=== PATIENT | female | born 1975 | race Two or more races ===

== ENCOUNTER 2025-02-24 16:28 | Emergency (ER) | payer MEDICAID, OTHER ==
[~2025-02-24] VITALS: Ht 152.4 cm; Wt 80.5 kg
[2025-02-24 16:43] VITALS: TEMP 98.1
--- NOTE | 2025-02-24 17:07 | ED.PDOC ---
Back pain HPI HPI Comments HPI: 50 y/o F, with PMhx of obesity, arthritis, migraines, and HTN presents to the ED for CC of back pain. Patient states, that she has been experiencing lower lumbar back pain onset, [id number] following swimming in a pool. Patient reports, new onset symptoms of left leg and left arm numbness starting today (02/24/25). Quang walker relays, taking Oxycodan and trying over the counter lidocaine cream in addition to ice packs to try and alleviate symptoms with no success. Patient endorses, symptoms to worsen with movement and warmth. Patient denies trauma, injury, fall, or lifting. No other symptoms or modifying factors present at this time. Initial Vitals BP: 136/86 HR:87 RR:16 O2:97 Temp:98.1 Past Medical History: ARTHRITIS, OBESITY, HTN, MIGRAINES Past Surgical History: RUPTURED ECTOPIC , TRIGGER FINGERS, , LEFT-EYE, RIGHT-EYE Social History: Denies ETOH, smoking, and drug use. Medications: DENIES ANY Allergies: NKA Chief Complaint: Back Pain Time Seen by MD: 17:00 Reviewed Notes: Nurses Notes, Medications, Allergies Allergies: Coded Allergies: NO KNOWN ALLERGIES (Unverified , 02/24/25) Information Source: Patient Mode of Arrival: Ambulatory Timing: Weeks Duration: Since onset Location of Back pain: (B) Lumbar Severity: Moderate Prehospital treatment: None Onset: Other (sporting) Circumstance: Sporting History of: Arthritis Modifying Factors: Nothing Associated signs and symptoms: None Was a procedure done? Was a procedure done?: No Back Pain Differential Dx Differential Diagnosis: Musculoskeletal Pain, Other (pinched nerve) X-Ray, Labs, Meds, VS Vital Signs Date Time Temp Pulse Resp B/P (MAP) Pulse Ox O2 Delivery O2 Flow Rate FiO2 02/24/25 20:24 99 18 99 Room Air 02/24/25 20:24 89 18 124/89 (101) 99 02/24/25 16:43 98.1 87 16 136/86 (103) 97 98.1 Lab Test 02/24/25 17:29 02/24/25 17:00 Range/Units White Blood Count 6.5 4.4-10.8 10^3/uL Red Blood Count 4.87 4.0-5.20 10^6/uL Hemoglobin 14.6 12.2-16.2 g/dL Hematocrit 42.4 36.0-46.0 % Mean Corpuscular Volume 87.1 80.0-100.0 fL Mean Corpuscular Hemoglobin 30.1 28.0-32.0 pg Mean Corpuscular Hemoglobin Concent 34.5 32.0-36.0 g/dL Red Cell Distribution Width 13.3 11.8-14.3 % Platelet Count 330 140-450 10^3/uL Mean Platelet Volume 7.7 6.9-10.8 fL Neutrophils (%) (Auto) 65.4 37.0-80.0 % Lymphocytes (%) (Auto) 25.3 10.0-50.0 % Monocytes (%) (Auto) 7.3 0.0-12.0 % Eosinophils (%) (Auto) 1.7 0.0-7.0 % Basophils (%) (Auto) 0.3 0.0-2.0 % Neutrophils # (Auto) 4.2 1.6-8.6 10 ^3/uL Lymphocytes # (Auto) 1.6 0.4-5.4 10 ^3/uL Monocytes # (Auto) 0.5 0-1.3 10 ^3/uL Eosinophils # (Auto) 0.1 0-0.8 10 ^3/uL Basophils # (Auto) 0 0-0.2 10 ^3/uL Nucleated Red Blood Cells 0.1 % Sodium Level 146 H 136-145 mmol/L Potassium Level 3.5 3.5-5.1 mmol/L Chloride Level 109 H 98-107 mmol/L Carbon Dioxide Level 28 20-31 mmol/L Anion Gap 9 5-15 Blood Urea Nitrogen 9 9-23 mg/dL Creatinine 0.89 0.550-1.02 mg/dL Glomerular Filtration Rate Calc 78 >90 mL/min BUN/Creatinine Ratio 10.1 10.0-20.0 Serum Glucose 113 H 74-106 mg/dL Calcium Level 10.6 H 8.7-10.4 mg/dL Total Bilirubin 0.5 0.2-1.0 mg/dL Aspartate Amino Transferase (AST) 37 13-40 U/L Alanine Aminotransferase (ALT) 54 H 7-40 U/L Alkaline Phosphatase 82 46-116 U/L Total Protein 7.5 5.7-8.2 g/dL Albumin 5.0 H 3.2-4.8 g/dL Urine Color Yellow Yellow Urine Clarity Clear Clear Urine pH 5.5 5.0-9.0 Urine Specific [place] 1.023 1.001-1.035 Urine Protein Negative Negative Urine Ketones Negative Negative Urine Blood Negative Negative /uL Urine Nitrite Negative Negative Urine Bilirubin Negative Negative Urine Urobilinogen Normal Negative mg/dL Urine Leukocyte Esterase 2+ Negative /uL Urine RBC 2 0 - 4 /hpf Urine Microscopic WBC 2 0-5 /HPF Urine Squamous Epithelial Cells Few <5 /hpf Urine Bacteria None seen None Seen /hpf Urine Hyaline Casts Few 0 - 2 /lpf Urine Mucus Few None Seen Urine Glucose Normal Normal mg/dL Current Medications Medications (Trade) Dose Ordered Sig/Ephraim Route Start Time Stop Time Status Last Admin Dexamethasone Sodium Phosphate (Decadron Injection) 10 mg ONCE ONCE IM 02/24/25 18:00 02/24/25 18:01 DC 02/24/25 20:14 Ketorolac Tromethamine (Toradol Injection) 30 mg ONCE ONCE IM 02/24/25 18:00 02/24/25 18:01 DC 02/24/25 20:14 Acetaminophen/ Hydrocodone Bitart ([place] 5/325MG Tab) 1 tab ONCE ONCE PO 02/24/25 18:00 02/24/25 18:01 DC 02/24/25 20:14 [place] [address] Ph: [phone] DIAGNOSTIC IMAGING Diagnostic Imaging Report : [id number] Signed PATIENT: ANGELIKA PATEL CAROLACCT: [id number] UNIT: [id number] : 1975 LOC: ER ROOM / BED: / AGE / SEX: 50 / F ADM STATUS: REG ER SERVICE [id number] ORDERING PHYSICIAN: SHANTE GARCIA DO PROCEDURE(s): LS2CT - LS SPINE WO CONTRAST REASON: LOW BACK PAIN ORDER NUMBER(s): [id number], ACCESSION NUMBER(s): [id number] EXAM: CT LS SPINE WO CONTRAST INDICATION: LOW BACK PAIN TECHNIQUE: Axial images of the lumbar spine have been obtained along with coronal and sagittal reformatted images. CT scans at this facility use dose modulation, iterative reconstruction, and/or weight based dosing when appropriate to reduce radiation dose to as low as reasonably achievable. COMPARISON: None Dose: CTDI: 36.84. DLP: 1084.9 FINDINGS: 5 [id number] lumbar-type vertebrae. Normal alignment of the lumbar spine. The vertebral body heights are maintained. No evidence of acute traumatic fractures or spondylolisthesis. Minimal posterior disc bulge at L3-L4 and L5-S1. Otherwise, no significant spinal canal or neural foramina stenosis. The paraspinal muscles are unremarkable. IMPRESSION: No evidence of acute traumatic fractures or dislocations. If symptoms persist, consider MRI for further evaluation. ATED BY: REVA JEONG DO DICTATED DATE/TIME: 02/24/251745 SIGNED BY: REVA JEONG DO SIGNED DATE/TIME: 02/24/251745 CC: Time of 1ST Reevaluation: 17:30 Reevaluation 1ST: Unchanged Patient Education/Counseling: Diagnosis, Treatment Family Education/Counseling: No Family Present Departure 1 Departure Time of Disposition: 19:52 Impression: Primary Impression: Low back pain Disposition: 01 HOME / SELF CARE / HOMELESS Condition: Stable Additional Instructions: Additional instructions: You MUST follow-up with your primary care/family doctor in 1 to 2 days. If you are unable to see your primary care/family doctor, please return to our emergency room for re-assessment and re-evaluation in 1 to 2 days. Return to the emergency room here in our facility or to the nearest ER [facility] if your symptoms change or worsen. CONSULTATIONS: you MUST Follow-up for consultation as soon as possible with: -spine doctor in 1-2 days. Please call for appointment. You MUST call the consultants office yourself to make an appointment. You may need to arrange that through your insurance and/or your primary/family doctor. If you are unable to see the technical marketing consultant in 1 to 2 days, you must return to our emergency room (or any other ER of your choice) for re-assessment and re- evaluation. Adequate fluid hydration. No heavy lifting. You will need an outpatient MRI of your back for further evaluation and treatment. Below is a copy of your radiological report for follow up: [address] [address] Ph: [phone] DIAGNOSTIC IMAGING Diagnostic Imaging Report : [id number] Signed PATIENT: ANGELIKA PATEL ACCT: [id number] UNIT: [id number] : 1975 LOC: ER ROOM / BED: / AGE / SEX: 50 / F ADM STATUS: REG ER SERVICE [id number] ORDERING PHYSICIAN: SHANTE GARCIA DO PROCEDURE(s): LS2CT - LS SPINE WO CONTRAST REASON: LOW BACK PAIN ORDER NUMBER(s): [id number], ACCESSION NUMBER(s): [id number] EXAM: CT LS SPINE WO CONTRAST INDICATION: LOW BACK PAIN TECHNIQUE: Axial images of the lumbar spine have been obtained along with coronal and sagittal reformatted images. CT scans at this facility use dose modulation, iterative reconstruction, and/or weight based dosing when appropriate to reduce radiation dose to as low as reasonably achievable. COMPARISON: None Dose: CTDI: 36.84. DLP: 1084.9 FINDINGS: 5 [id number] lumbar-type vertebrae. Normal alignment of the lumbar spine. The vertebral body heights are maintained. No evidence of acute traumatic fractures or spondylolisthesis. Minimal posterior disc bulge at L3-L4 and L5-S1. Otherwise, no significant spinal canal or neural foramina stenosis. The paraspinal muscles are unremarkable. IMPRESSION: No evidence of acute traumatic fractures or dislocations. If symptoms persist, consider MRI for further evaluation. ATED BY: REVA JEONG DO DICTATED DATE/TIME: 02/24/251745 SIGNED BY: REVA JEONG DO SIGNED DATE/TIME: 02/24/251745 CC: Discharged With: Self Critical Care Note Critical Care Time?: No I personally scribed for SHANTE GARCIA DO ([email or web address]) on 02/24/25 at 17:07. Electronically submitted by Dianna Morgan ([email or web address]). I personally scribed for SHANTE GARCIA DO ([email or web address]) on 02/24/25 at 17:24. Electronically submitted by Dianna Morgan ([email or web address]). I personally scribed for SHANTE GARCIA DO ([email or web address]) on 02/24/25 at 17:29. Electronically submitted by Dianna Morgan ([email or web address]). I personally scribed for SHANTE GARCIA DO ([email or web address]) on 02/24/25 at 18:10. Electronically submitted by Dianna Morgan ([email or web address]). I personally scribed for SHANTE GARCIA DO ([email or web address]) on 02/25/25 at 00:09. Electronically submitted by Maxim Meehan ([email or web address]). SHANTE GARCIA DO Feb 24, 2025 17:07
[2025-02-24 17:42] LABS: Urine Protein, UAD Negative (Negative)
--- NOTE | 2025-02-24 17:49 | DVH ---
EXAM: CT LS SPINE WO CONTRAST INDICATION: LOW BACK PAIN TECHNIQUE: Axial images of the lumbar spine have been obtained along with coronal and sagittal reform atted images. CT scans at this facility use dose modulation, iterative reconstruction, and/or weight based dosing when appropriate to reduce radiation dose to as low as reasonably achievable. COMPARISON: None Dose: CTDI: 36.84. DLP: 1084.9 FINDINGS: 5 [id number] lumbar-type vertebrae. Normal alignment of the lumbar spine. The vertebral body hei ghts are maintained. No evidence of acute traumatic fractures or spondylolisthesis. Minimal posterior disc bulge at L3-L4 and L5-S1. Otherwise, no significant spinal canal or neural fo ramina stenosis. The paraspinal muscles are unremarkable. IMPRESSION: No evidence of acute traumatic fractures or dislocations. If symptoms persist, consider MRI for furt her evaluation.
[2025-02-24 18:00] LABS: Hematocrit 42.4 % (36.0-46.0); Hemoglobin 14.6 g/dL (12.2-16.2); Mean Corpuscular Hemoglobin 30.1 pg (28.0-32.0); Mean Corpuscular Volume 87.1 fL (80.0-100.0); Nucleated Red Blood Cells % 0.1 %
[2025-02-24 18:15] LABS: Alkaline Phosphatase 82 U/L (46-116); Anion Gap 9 (5-15); BUN/Creatinine Ratio 10.1 (10.0-20.0); Carbon Dioxide 28 mmol/L (20-31); Potassium 3.5 mmol/L (3.5-5.1); Total Protein 7.5 g/dL (5.7-8.2)
[2025-02-24 18:16] LABS: Bilirubin, Total 0.5 mg/dL (0.2-1.0)
[2025-02-24 18:19] LABS: Alanine Aminotransferase 54 U/L (7-40); Albumin 5.0 g/dL (3.2-4.8); Blood Urea Nitrogen 9 mg/dL (9-23); Calcium 10.6 mg/dL (8.7-10.4); Chloride 109 mmol/L (98-107); Glucose 113 mg/dL (74-106); Sodium 146 mmol/L (136-145)
[2025-02-24] MEDS: KETOROLAC TROMETH 30 MG/ML 1ML VIAL IM ONE (20:14)
[2025-02-24] MEDS: HYDROcodone-ACET 5/325MG TAB PO ONE (20:14)
[2025-02-24 20:24] VITALS: BP 124/89; PULSE 99; RESP 18; O2SAT 99
== END 2025-02-24 20:23 | disposition home or self-care (01) ==
LOC: ER 16:33
DX: M54.50 Low back pain, unspecified (principal); M19.90 Unspecified osteoarthritis, unspecified site; I10 Essential (primary) hypertension; E66.9 Obesity, unspecified; Z98.890 Other specified postprocedural states; Z68.34 Body mass index [BMI] 34.0-34.9, adult
CPT/HCPCS: 36415; 72131; 80053; 81001; 85025; 96372; 99285; J1100; J1885